=== PATIENT | male | born 1975 | race Caucasian/White ===

== ENCOUNTER → 2018-06-21 | Outpatient (REF) | payer BC | LOC: M SFHCLERA 09:59 | DX: R19.7 Diarrhea, unspecified (principal) | CPT/HCPCS: 87507 ==

== ENCOUNTER → 2018-09-08 | Outpatient (CLI) | payer OTHER | LOC: M LRY 12:36 | DX: S99.911A Unspecified injury of right ankle, initial encounter (principal); M79.89 Other specified soft tissue disorders; Y92.89 Other specified places as the place of occurrence of the external cause; Y93.9 Activity, unspecified; X58.XXXA Exposure to other specified factors, initial encounter; Y99.8 Other external cause status | CPT/HCPCS: 73610 ==